=== PATIENT | female | born 1955 | race Caucasian/White ===

== ENCOUNTER 2018-02-09 17:50 | Emergency (ER) | payer OTHER ==
[2018-02-09 20:00] VITALS: BP 155/92
== END 2018-02-09 20:29 | disposition home or self-care (01) ==
LOC: ED 17:50
DX: S20.02XA Contusion of left breast, initial encounter (principal); I10 Essential (primary) hypertension; V89.2XXA Person injured in unspecified motor-vehicle accident, traffic, initial encounter; Y93.I9 Activity, other involving external motion; Y92.89 Other specified places as the place of occurrence of the external cause; Y99.8 Other external cause status
CPT/HCPCS: J1885; Q0162

== ENCOUNTER 2020-08-30 11:50 | Emergency (ER) | payer OTHER ==
[~2020-08-30] VITALS: Ht 160 cm; Wt 64.9 kg
[2020-08-30 12:03] VITALS: Ht 160 cm; Wt 64.9 kg
[2020-08-30 14:45] VITALS: BP 111/74
== END 2020-08-30 14:45 | disposition home or self-care (01) ==
LOC: ED 11:50
DX: M13.861 Other specified arthritis, right knee (principal); I10 Essential (primary) hypertension; Z98.51 Tubal ligation status
CPT/HCPCS: J1885; J2270; Q0162